=== PATIENT | female | born 1965 | race Caucasian/White ===

== ENCOUNTER 2017-04-20 21:05 | Emergency (ER) | payer BC ==
[2017-04-20 21:16] VITALS: BP 158/85; BMI 24.3
--- NOTE | 2017-04-20 21:25 | DR.GENAD ---
HPI - PCP Primary Care Physician: KATARINA - Complaint/Symptoms Chief Complaint Doctors Comments: Son states his mother and father has been having problems and her blood pressure went up and she had a panic attack and had slurred speech and problems with her hands drawing up and they thought she was threatening a stroke and brought her to be evaluated. Patient states she do not like me and she is not talking to me. States she is going to leave. Son taking with patient trying to convience her to stay. Chief Complaint:: HIGH BLOODPRESSURE - Nurses notes reviewed Nurses Notes Review: Yes - Source History Provided: Patient - Mode of Arrival Mode of Arrival: Ambulatory - Timing Onset of Chief Complaint: 04/20/17 Came on: Suddenly - Duration Duration: Intermittent How lon Duration: Days - Severity Severity: Mild - Modifying Factors Worsens:: nothing Improves:: nothing PMH - PMH Past Medical History: Yes Past Medical History: Anxiety, Hypertension, Hypothyroidism Past Medical History Comment: LUPUS FIBROMYALGIA Past Surgical History: Yes Surgical History: Tonsillectomy Past Surgical History Comment: BREAST AUGMENTATION KNEE SURGERY - Family History History of Family Medical Conditions: No - Social History Does patient currently use any type of tobacco product: No Have you used tobacco products in the last 12 months: No Type of Tobacco Use: None Does any household member use tobacco: No Alcohol Use: Occasionally Do you use any recreational Drugs:: No Lives With: Spouse Lives Where: Home - infectious screening In the last 2 months have you had wt loss of >10#?: NO Have you had fever, night sweats or hemotysis?: No Have you traveled outside the country in the last 6 months?: No Isolation: Standard ROS - Review of Systems Constitutional: No Symptoms Reported, Weakness, Loss of Appetite Eyes: No Symptoms Reported ENTM: No Symptoms Reported Respiratoy: No Symptoms Reported Cardiovascular: No Symptoms Reported Gastrointestinal/Abdominal: Nausea Genitourinary: No Symptoms Reported Neurological: Anxiety, Emotional Problems, Weakness, Speech Problem Musculoskeletal: No Symptoms Reported Integumentary: No Symptoms Reported Hematologic/Lymphatic: No Symptoms Reported Endocrine: No Symptoms Reported Psychiatric: Anxiety PE - Vital Signs Vitals: Temperature 98.8 F Pulse Rate 91 Respiratory Rate 14 Blood Pressure 158/85 O2 Sat by Pulse Oximetry 98 - General Limitations: Physical Limitation General Appearance: Alert, Anxious - Head Head Exam: Normal Inspection, Atraumatic, Normocephalic - Eyes Eye exam: Normal Appearance, PERRL, EOMI - ENT ENT Exam: Normal Exam, Normal External Ear Exam External Ear Exam: Normal External Inspection Mouth Exam: Normal Inspection - Chest Chest Inspection: Normal Inspection - Respiratory Respiratory Exam: Normal Lung Sounds Bilat - Abdominal Exam Abdominal Exam: negative: Dimnished Bowel Sounds (patient decided she was leaving and was going to sign AMA and would not permit me to continue examination. Patient signed AMA. ) Course - Consultation Consultation Comments: Patient's spouse in for evaluation of threatening to kill himself states patient drinks all evening after she get home from school until 6 am and he was trying to get her to stop drinking but she said she was not going to stop drinking for anyone. States patient was packing to leave him and he said he would take a gun and blow his brains out if she left trying to scar her into staying with him. Family relates patient drinks to much but will not get help. - Education/Counseling Education/Counseling: Family Educated On: Needs for Follow Up - Diagnosis Discharge Problem: Altered mental status, Panic attack, History of alcohol abuse - Discharge Plan Disposition: AGAINST MEDICAL ADVICE Condition: Stable - Follow ups/Referrals Follow ups/Referrals: JONO BRAY [Primary Care Provider] - 3 days - Instructions
== END 2017-04-20 21:25 | disposition left against medical advice (07) ==
LOC: ER 21:12
DX: R41.82 Altered mental status, unspecified (principal); F10.10 Alcohol abuse, uncomplicated; F41.0 Panic disorder [episodic paroxysmal anxiety]
CPT/HCPCS: 99281; 99283

== ENCOUNTER → 2017-07-30 | Outpatient (CLI) | payer BC | END | disposition home or self-care (01) | DRG 951 | LOC: RT 15:10 | PROVIDERS: ATTEND Orthopaedic Surgery Sports Medicine | DX: Z01.818 Encounter for other preprocedural examination (principal); I10 Essential (primary) hypertension; M25.562 Pain in left knee | CPT/HCPCS: 93005; 93010 ==